=== PATIENT | male | born 1980 | race Caucasian/White ===

== ENCOUNTER 2019-05-25 12:16 | Emergency (ER) | payer BC ==
[2019-05-25] MEDS ORDERED: methylPREDNISolone Sodium Succinate 125 MG/2 ML SDV IVPUSH ONE (12:28)
[2019-05-25] MEDS ORDERED: Sodium Chloride 0.9% 1,000 ML IV ONE (12:28)
--- NOTE | 2019-05-25 12:46 | EDM.PDOC ---
ED HPI GENERAL MEDICAL PROBLEM - General Chief Complaint: ENT Problem Stated Complaint: SORE THROAT Time Seen by Provider: 05/25/19 12:18 - History of Present Illness INITIAL COMMENTS - FREE TEXT/NARRATIVE: HISTORY AND PHYSICAL: History of present illness: Patient is a 38-year-old male presenting to the emergency room for complaints of a sore throat. Patient states his symptoms started on Tuesday with sinus pressure and a minor sore throat which he thought started to alleviate yesterday , but came back worse in intensity last night with regards to his sore throat. He rates the pain in his throat at a 10 out of 10 describing it as sharp. He relays that he is having trouble swallowing since last night and currently in the exam room. So far he has taken Mucinex DM, 800 mg of ibuprofen, and one tablet of Augmentin that was not prescribed to him, but given by his at 0600 this morning. He reports no alleviating factors for the pain in his throat , with swallowing aggravating the pain. His and son have recently an ill with a sore throat. He denies shortness of breath currently, chest pain, nausea , vomiting, or abdominal pain. Review of systems: As per history of present illness and below otherwise all systems reviewed and negative. Past medical history: As per history of present illness and as reviewed below otherwise noncontributory. Surgical history: As per history of present illness and as reviewed below otherwise noncontributory. Social history: See social history for further information Family history: As per history of present illness and as reviewed below otherwise noncontributory. Physical exam: General: patient is a well-nourished and well-developed 38-year-old male. Alert and orientated. Nontoxic and in no acute distress. Vital signs have been reviewed by me. HEENT: Normocephalic, pupils equal and reactive bilaterally, negative for conjunctival pallor or scleral icterus, mucous membranes moist, TMs normal bilaterally, posterior oropharynx erythematous, neck supple, nontender, trachea midline. No drooling or trismus noted. No meningeal signs. No hot potato voice noted. Lungs: Clear to auscultation, breath sounds equal bilaterally, chest nontender. Heart: S1S2, regular rate and rhythm without overt murmur Abdomen: Soft, nondistended, nontender. Negative for masses or hepatosplenomegaly. Negative for costovertebral tenderness. Skin: Intact, warm, dry. No lesions or rashes noted. Extremities: Atraumatic, moves all extremities per self without difficulty or deficits, negative for cords or calf pain. Neurovascular unremarkable. Neuro: Awake, alert, oriented. Cranial nerves II through XII unremarkable. Cerebellum unremarkable. Motor and sensory unremarkable throughout. Exam nonfocal. Notes: Positive strep screening. Patient does have elevated white count, remaining serum lab work is unremarkable. CT of the neck shows slightly prominent adenoidal tissue within the nasopharynx. No abscess or inflammatory changes are noted. Patient did have blood cultures drawn and IV antibiotics were initiated. After the IV fluids and medications he does appear improved. All findings were shared with the patient and at bedside. Supportive care measures were reviewed and discussed. Voices understanding and is agreeable to plan of care. Denies any further questions or concerns at this time. Diagnostics: CBC, CMP, CT of the neck Therapeutics: Clindamycin, Phenergan with Codeine Prescription: Clindamycin 300mg TID x 10 days Phenergan with Codeine (#4 oz) Impression: Strep Throat Plan: 1. Take your medication as directed. Good handwashing and contact precautions as we discussed. 2. Warm Salt water gargles (rinse and spit) 3-4 x daily. Please get a new tooth brush after completion of your medication 3. Tylenol and or ibuprofen as needed for pain management. 4. Follow-up with your primary care provider in the next 1-2 days. Return to the ED as needed and as discussed. Definitive disposition and diagnosis as appropriate pending reevaluation and review of above. Throat Pain Score (Numeric/FACES): 8 - Related Data Allergies Allergy/AdvReac Type Severity Reaction Status Date / Time No Known Allergies Allergy Verified 05/25/19 12:22 Home Meds: Home Meds Clindamycin HCl 300 mg PO TID #30 capsule 05/25/19 [Rx] Past Medical History - Past Health History Medical/Surgical History: Denies Medical/Surgical History Other HEENT History: tonsilitis - Infectious Disease History Infectious Disease History: Reports: Chicken Pox Social & Family History - Family History Family Medical History: Noncontributory - Tobacco Use Smoking Status *Q: Never Smoker - Caffeine Use Caffeine Use: Reports: Coffee - Recreational Drug Use Recreational Drug Use: No ED ROS ENT - Review of Systems Review Of Systems: ROS reveals no pertinent complaints other than HPI. ED EXAM, ENT - Physical Exam Exam: See Below (See dictation) Course - Vital Signs Last Recorded V/S: Last Vital Signs Temp 101 F H 05/25/19 12:30 Pulse 108 H 05/25/19 13:38 Resp 20 05/25/19 13:38 BP 132/87 05/25/19 13:38 Pulse Ox 95 05/25/19 13:38 - Orders/Labs/Meds Orders: Active Orders 24 hr Category Date Time Status CULTURE BLOOD [BC] Stat Lab 05/25/19 12:46 Received CULTURE BLOOD [BC] Stat Lab 05/25/19 12:58 Received Blood Culture x2 Reflex Set [OM.PC] Stat Oth 05/25/19 12:28 Ordered Labs: Laboratory Tests 05/25/19 05/25/19 05/25/19 Range/Units 12:46 12:46 12:46 WBC 24.39 H (4.0-11.0) K/uL RBC 5.18 (4.50-5.90) M/uL Hgb 15.7 (13.0-17.0) g/dL Hct 43.9 (38.0-50.0) % MCV 84.7 (80.0-98.0) fL MCH 30.3 (27.0-32.0) pg MCHC 35.8 (31.0-37.0) g/dL RDW Std Deviation 40.9 (28.0-62.0) fl RDW Coeff of Matt 13 (11.0-15.0) % Plt Count 192 (150-400) K/uL MPV 10.00 (7.40-12.00) fL Neut % (Auto) 86.2 H (48.0-80.0) % Lymph % (Auto) 6.4 L (16.0-40.0) % Wallace % (Auto) 7.3 (0.0-15.0) % Eos % (Auto) 0.0 (0.0-7.0) % Baso % (Auto) 0.1 (0.0-1.5) % Neut # (Auto) 21.0 H (1.4-5.7) K/uL Lymph # (Auto) 1.6 (0.6-2.4) K/uL Wallace # (Auto) 1.8 H (0.0-0.8) K/uL Eos # (Auto) 0.0 (0.0-0.7) K/uL Baso # (Auto) 0.0 (0.0-0.1) K/uL Nucleated RBC % 0.0 /100WBC Nucleated RBCs # 0 K/uL Lactate 1.3 (0.20-2.00) mmol/L Sodium 139 (136-148) mmol/L Potassium 3.8 (3.5-5.1) mmol/L Chloride 103 (98-107) mmol/L Carbon Dioxide 23.2 (21.0-32.0) mmol/L BUN 9 (7.0-18.0) mg/dL Creatinine 1.3 (0.8-1.3) mg/dL Est Cr Clr Drug Dosing 86.22 mL/min Estimated GFR (MDRD) > 60.0 ml/min Glucose 116 H (74-106) mg/dL Calcium 8.9 (8.5-10.1) mg/dL Total Bilirubin 0.9 (0.2-1.0) mg/dL AST 25 (15-37) IU/L ALT 67 H (14-63) IU/L Alkaline Phosphatase 85 (46-116) U/L Total Protein 7.7 (6.4-8.2) g/dL Albumin 3.6 (3.4-5.0) g/dL Globulin 4.1 H (2.6-4.0) g/dL Albumin/Globulin Ratio 0.9 (0.9-1.6) Meds: Medications Discontinued Medications Generic Name Dose Route Start Last Admin Trade Name Freq PRN Reason Stop Dose Admin Sodium Chloride 1,000 mls @ 999 mls/hr 05/25/19 12:28 05/25/19 12:44 Normal Saline IV 05/25/19 13:28 999 mls/hr STAT ONE Administration Clindamycin Phosphate 600 mg/ 50 mls @ 100 mls/hr 05/25/19 13:15 05/25/19 13: 35 Premix IV 05/25/19 13:44 100 mls/hr ONETIME ONE Administration Iopamidol 80 ml 05/25/19 14:08 05/25/19 14:09 Isovue Multipack-370 (76%) IVPUSH 05/25/19 14:09 80 ml ONETIME STA Administration Methylprednisolone Sodium Succinate 125 mg 05/25/19 12:28 05/25/19 12:46 Solu-Medrol IVPUSH 05/25/19 12:29 125 mg ONETIME ONE Administration Promethazine HCl/Codeine 10 ml 05/25/19 13:07 05/25/19 13:34 Phenergan With Codeine PO 05/25/19 13:08 10 ml STAT STA Administration Departure - Departure Time of Disposition: 14:35 Disposition: Home, Self-Care 01 Clinical Impression: Strep throat - Discharge Information Prescriptions: Clindamycin HCl 300 mg PO TID #30 capsule Instructions: Strep Throat Referrals: Neil Ceja MD [Primary Care Provider] - Forms: ED Department Discharge Additional Instructions: The following information is given to patients seen in the emergency department who are being discharged to home. This information is to outline your options for follow-up care. We provide all patients seen in our emergency department with a follow-up referral. The need for follow-up, as well as the timing and circumstances, are variable depending upon the specifics of your emergency department visit. If you don't have a primary care physician on staff, we will provide you with a referral. We always advise you to contact your personal physician following an emergency department visit to inform them of the circumstance of the visit and for follow-up with them and/or the need for any referrals to a consulting specialist. The emergency department will also refer you to a specialist when appropriate. This referral assures that you have the opportunity for follow-up care with a specialist. All of these measure are taken in an effort to provide you with optimal care, which includes your follow-up. Under all circumstances we always encourage you to contact your private physician who remains a resource for coordinating your care. When calling for follow-up care, please make the office aware that this follow-up is from your recent emergency room visit. If for any reason you are refused follow-up, please contact the [facility] Emergency Department at and asked to speak to the emergency department charge nurse. [facility] Primary Care [address] [place] [id number] [facility] [place] [address] [place] [id number] 1. Take your medication as directed. Good handwashing and contact precautions as we discussed. 2. Warm Salt water gargles (rinse and spit) 3-4 x daily. Please get a new tooth brush after completion of your medication 3. Tylenol and or ibuprofen as needed for pain management. 4. Follow-up with your primary care provider in the next 1-2 days. Return to the ED as needed and as discussed - My Orders Last 24 Hours: My Active Orders 05/25/19 12:28 Blood Culture x2 Reflex Set [OM.PC] Stat 05/25/19 12:46 CULTURE BLOOD [BC] Stat 05/25/19 12:58 CULTURE BLOOD [BC] Stat - Assessment/Plan Last 24 Hours: My Active Orders 05/25/19 12:28 Blood Culture x2 Reflex Set [OM.PC] Stat 05/25/19 12:46 CULTURE BLOOD [BC] Stat 05/25/19 12:58 CULTURE BLOOD [BC] Stat
[2019-05-25] MEDS ORDERED: Codeine/Promethazine 10-6.25 MG/5 ML Syrup 5 ML UD Cup PO STA (13:07)
[2019-05-25] MEDS ORDERED: Clindamycin Phosphate in D5W 600 MG in Premix Bag 1 BAG IV ONE ×2 (13:15)
[2019-05-25 13:23] LABS: BLOOD UREA NITROGEN,BUN 9 mg/dL (7.0-18.0); CARBON DIOXIDE,CO2 23.2 mmol/L (21.0-32.0); CHLORIDE,CL 103 mmol/L (98-107); GLUCOSE RANDOM 116 mg/dL (74-106); POTASSIUM,K 3.8 mmol/L (3.5-5.1); SODIUM,NA 139 mmol/L (136-148)
[2019-05-25] MEDS ORDERED: Iopamidol 755 MG/ML 500 ML Multipack Bottle IVPUSH STA (14:08)
--- NOTE | 2019-05-25 14:27 | CT ---
CT neck Technique: Multiple axial sections through the neck were obtained. Intravenous contrast was utilized. Comparison: No prior corresponding imaging is available. Findings: Minimal low density finding is noted within the left lobe of the thyroid gland which is felt to be incidental. Submandibular and parotid salivary glands appear within normal limits. Slightly prominent adenoidal tissue is seen within the posterior nasopharynx. Prevertebral soft tissues are normal. Epiglottis is normal. No parapharyngeal abscess is seen. No inflammatory change is seen within the neck. Bone window settings were reviewed which appear within normal limits for the patient's age. Visualized sinuses show nothing acute. Impression: 1. Slightly prominent adenoidal tissue within the nasopharynx. 2. No additional abnormality is appreciated on CT study of the neck. Diagnostic code #2 MTDD
== END 2019-05-25 15:11 | disposition home or self-care (01) ==
LOC: MW.ED 12:16
DX: J02.0 Streptococcal pharyngitis (principal)
CPT/HCPCS: 36415; 70491; 80053; 83605; 85025; 87040; 87880; 93005; 96361; 96365; 96375; 99284; A9270; J2930; J7040; Q9967; S0077; J3490

== ENCOUNTER 2021-09-06 09:00 | Emergency (ER) | payer BC ==
[2021-09-06] MEDS ORDERED: Ibuprofen 600 MG Tab PO ONE (09:47)
[2021-09-06] MEDS ORDERED: Cyclobenzaprine 10 MG Tab PO ONE (09:47)
[2021-09-06 10:06] LABS: CORONAVIRUS COVID-19 NAA POSITIVE (NEGATIVE); INFLUENZA A NAA NEGATIVE (NEGATIVE); INFLUENZA B NAA NEGATIVE (NEGATIVE)
== END 2021-09-06 10:58 | disposition home or self-care (01) ==
LOC: MW.ED 09:00
DX: U07.1 COVID-19 (principal); M54.50 Low back pain, unspecified
CPT/HCPCS: 0240U; 99283; A9270